=== PATIENT | female | born 1980 | race Caucasian/White ===

== ENCOUNTER 2016-09-28 08:36 | Emergency (ER) | payer OTHER | END 2016-09-28 09:30 | disposition home or self-care (01) | LOC: SED 08:36 | DX: S61.432A Puncture wound without foreign body of left hand, initial encounter (principal); F17.200 Nicotine dependence, unspecified, uncomplicated; W26.8XXA Contact with other sharp object(s), not elsewhere classified, initial encounter; Y92.830 Public park as the place of occurrence of the external cause | CPT/HCPCS: 90715; 99283 ==